=== PATIENT | male | born 1955 | race Caucasian/White ===

== ENCOUNTER → 2023-03-08 | Outpatient (CLI) | payer MEDICARE | END | disposition home or self-care (01) | LOC: RAH 14:42 | PROVIDERS: ATTEND Physical Medicine & Rehabilitation | DX: M16.11 Unilateral primary osteoarthritis, right hip (principal); M25.551 Pain in right hip | CPT/HCPCS: 73700 ==

== ENCOUNTER → 2024-09-01 | Outpatient (CLI) | payer MEDICARE ==
[~2024-09-01] MED LIST: IOHEXOL 350 MG/ML 100ML INFUS..BTL IV ONE
--- NOTE | 2024-09-01 12:27 | HMCIMG ---
CT UROGRAM (ABD/PEL WWO) HISTORY: Benign neoplasm of bladder COMPARISON: None TECHNIQUE: Multiple sequential axial images of the abdomen and pelvis were obtained from the dome of the diaphragm through symphysis pubis. Patient was given 100 cc of Omnipaque through intravenous route. Oral contrast was not given. CT urogram was obtained. FINDINGS: COPD changes are seen. Bibasilar linear atelectasis changes are seen. Elevation of left hemidiaphragm is seen. No pleural effusion is seen bilaterally. There is no evidence of parenchymal disease or pulmonary nodule of the visualized lower lungs. Degenerative changes of the thoracolumbar spine are present. The heart is not enlarged. The liver, spleen, adrenal glands and pancreas are unremarkable. There is no evidence of hydronephrosis bilaterally. There is contrast excretion noted of the right urinary collecting system. However, only the proximal portion of the left proximal ureter is seen. If needed, nuclear renal scan may be helpful. Partial obstruction cannot be excluded. No evidence of renal stone is seen. There are multiple renal cysts with the largest on the right measuring 3 cm. Fecal material is seen in the colon. There are normal size retroperitoneal and mesenteric lymph nodes. No ascites is seen. Atherosclerotic changes are present. Pelvic sidewalls are symmetric bilaterally. Bladder is well distended without wall thickening. IMPRESSION: 1. Contrast excretion and enhancement is seen only involving the proximal portion of the left ureter. Partial obstruction cannot excluded. No definite hydronephrosis is seen. Mild small bowel dilatation is seen. Fecal material is seen in the colon. Multiple right renal cysts. CT was performed with one or more following dose reduction techniques: automated exposure control, adjustment of the mA and kv according to patient's size, or use of a iterative reconstruction technique.
== END | disposition home or self-care (01) ==
LOC: RAH 09:40
PROVIDERS: ATTEND Urology
DX: D30.3 Benign neoplasm of bladder (principal); N28.1 Cyst of kidney, acquired; N13.5 Crossing vessel and stricture of ureter without hydronephrosis; R19.5 Other fecal abnormalities; J44.9 Chronic obstructive pulmonary disease, unspecified; J98.11 Atelectasis; M47.815 Spondylosis without myelopathy or radiculopathy, thoracolumbar region; I70.90 Unspecified atherosclerosis
CPT/HCPCS: 74178; Q9967